=== PATIENT | male | born 1960 | race Caucasian/White ===

== ENCOUNTER 2020-03-16 07:15 | Day surgery (SDC) | payer OTHER ==
[2020-03-10 09:24] LABS: Absolute Lymphocytes (CBC) 1.6 K/uL (0.7-4.9); Basophils % 0.6 % (0-1.3); Hematocrit 43.9 % (39.6-49.0)
--- NOTE | 2020-03-10 09:42 | RAD REPORT ---
EXAM DESCRIPTION: RAD - Chest Pa And Lat (2 Views) - 03/10/2020 9:06 am CLINICAL HISTORY: pre op, patient pending hernia repair COMPARISON: Single-view chest March 2008 TECHNIQUE: Frontal and lateral views of the chest were obtained. FINDINGS: The lungs are clear. Interstitial pattern not clearly different from comparison. Sternoto my wires are in place. Heart size is normal and central vasculature is within normal limits. No pleu ral effusion or pneumothorax seen. No acute bone findings seen. Thoracic vertebral body degenerative changes are present. No aortic abnormality. IMPRESSION: No acute cardiopulmonary process. No suspicious change from the 2007 study.
--- NOTE | 2020-03-10 10:07 | EKG ---
Test Date: 2020-03-10 Test Time: 08:52:51 Central Communications Specialist: MARINA MEASUREMENT RESULTS: Intervals: Rate: 78 WI: 138 QRSD: 106 QT: 372 QTc: 424 [place]: P: 54 WI: 138 QRS: 70 T: 79 INTERPRETIVE STATEMENTS: Normal sinus rhythm Incomplete right bundle branch block Borderline ECG No previous ECG available for comparison Electronically Signed On 03-10-20 10:06:29 CDT by Nathaniel Faye
[2020-03-10 11:31] LABS: Potassium 3.6 mmol/L (3.5-5.1)
[2020-03-16] MEDS ORDERED: Ringers Lactate 1,000 ML IV ONE (07:45)
[2020-03-16] MEDS ORDERED: CEFAZOLIN/SWI 1gm 1 GM/10 ML SYR ONE (07:46)
[2020-03-16] MEDS ORDERED: LIDOCAINE 1% MPF 5 ML VIAL ONE (08:35)
[2020-03-16] MEDS ORDERED: MIDAZOLAM HCL 2 MG/2 ML INJ ONE (08:35)
[2020-03-16] MEDS ORDERED: FENTANYL CITR 100 MCG/2 ML ONE (08:35)
[2020-03-16] MEDS ORDERED: propofoL 200 MG/20 ML VIAL IV ONE (08:35)
[2020-03-16] MEDS ORDERED: KETOROLAC 30 MG/ML INJ ONE (08:54)
[2020-03-16] MEDS ORDERED: dexAMETHasone 4 MG/ML VIAL ONE (08:54)
[2020-03-16] MEDS ORDERED: ONDANSETRON 4 MG/2 ML VIAL ONE (08:54)
[2020-03-16] MEDS ORDERED: NS 0.9% VIAL 10 ML ONE (09:09)
[2020-03-16] MEDS ORDERED: EPHEDRINE SULF 50 MG/ML VIAL ONE (09:09)
[2020-03-16] MEDS ORDERED: Mastisol Adhesive Liq ONE (09:28)
--- NOTE | 2020-03-16 10:00 | OP ---
Date of Procedure: 03/16/2020 Surgeon: Giacomo Dunn MD Sql Server Consultant: JULIA Mars. Preoperative Diagnosis: Right inguinal hernia. Postoperative Diagnosis: Right inguinal hernia. Procedure: Repair of right inguinal hernia. Estimated Blood Loss: Minimal. Specimen: Cord lipoma. Findings: As above with a right direct inguinal hernia. Anesthesia: General. Complications: None. The patient tolerated the procedure in stable condition, taken to Recovery in good general condition. Procedure In Detail: The patient was brought to the OR and placed in supine position. General anest hesia begun. The patient was prepped and draped in usual sterile fashion. Marcaine 0.5% was infiltr ated locally. A 15-blade was used to make a 4 cm oblique incision between the pubic tubercle and the anterior iliac superior spine. Subcutaneous tissue was divided. Richard's fascia was identified and divided. Aponeurosis was identified and mobilized inferiorly to expose shelving edge. Then the apo neurosis was opened through the external ring. The ilioinguinal nerve was identified and retracted o ut of the field of dissection. Cord was mobilized at the pubic tubercle and skeletonized. A large c ord lipoma was present, excised and 2-0 chromic used to tie the base. Direct hernia was identified, freed from the surrounding tissue, reduced back into the peritoneal cavity and the inguinal floor was reconstructed by closing the floor with the 2-0 Prolene joining the conjoined tendon to the shelving edge starting at the pubic tubercle and creating a new internal ring. Then Marlex mesh plug was jennifer july in the internal ring and secured with VersaTack stapler. An Onlay mesh was placed on the inguina l floor, secured medially to the pubic tubercle, inferiorly to the shelving edge, laterally to each o ther and superior to the conjoined tendon. Cord structures were placed back in anatomical location. Then 2-0 Prolene was used to close the aponeurosis, 3-0 chromic was used to approximate Richard's fas karen and closed the skin. Sterile dressing was applied. Patient was awakened and taken to Recovery i n good general condition. Discharge Note: The patient will go to Day Surgery and home when stable. Disposition: Home. Condition: Stable. Discharge Instructions: Resume home medications and diet. Activity as tolerated. No heavy lifting. Remove outer dressing in 2 days. Shower. Keep wound clean, dry. Scrotal support, ice pack. Ultr acet 1 tablet p.o. q.4 p.r.n. pain. Follow up in my office in a week. Call for appointment. FACUNDO/FREDDIE Voice ID: [id number] Report ID: [id number]
[2020-03-16 10:01] VITALS: O2SAT 98
[2020-03-16] MEDS ORDERED: HYDROMORPHONE HCL 1 MG/ML INJ ONE (10:04)
[2020-03-16 10:34] VITALS: TEMP 97
[2020-03-16] MEDS ORDERED: TRAMADOL 37.5mg/APAP 325mg PER TAB ONE (10:43)
[2020-03-16 11:17] VITALS: BP 130/70
== END 2020-03-16 11:35 | disposition home or self-care (01) ==
LOC: OR 07:15
PROVIDERS: ATTEND Surgery
PROC: 0YU50JZ Supplement Right Inguinal Region with Synthetic Substitute, Open Approach (ICD-10-PCS; principal; 2020-03-16 08:30)
DX: K40.90 Unilateral inguinal hernia, without obstruction or gangrene, not specified as recurrent (principal); J43.9 Emphysema, unspecified; Z20.828 Contact with and (suspected) exposure to other viral communicable diseases
CPT/HCPCS: 36415; 71046; 80048; 85025; 88302; 93005; J0690; J1100; J1170; J2250; J2405; J2704; J3010; J7120; U0002

== ENCOUNTER → 2023-07-27 | Emergency (ER) | payer OTHER ==
[~2023-07-27] MED LIST: OXYMETAZOLINE HCL 0.05% 15ML NAS ONE
--- OUTSIDE RECORDS SUMMARY | 2023-07-27 16:32 | XMS REPORT | Continuity of Care Document ---
Author Name Unknown Address [address] [facility] [place] [address] [facility] thconnect Address [address] [facility] [address] [place] [address] Care Team Providers Care Comb Tender Name Role Phone Lorenzo Nam Attending Clinician Lorenzo Klein Admitting Clinician Rodger apodaca Payers Payer Name Policy Type Policy Number Effective Date Expirati on Date Source Allergies, Adverse Reactions, Alerts Allergy Name Allergy Type Status Severity Reaction(s) Onset Date Inactive Date Treating Clinician Comments Source codeine DA Active U UNKNOWN 06-20 00:00: 00 [facility] Encounters Start Date/Time End Date/Time Encounter Type Admission Type Attending Clinicians Care Facility Care Department Encounter ID Source 2022-06-20 06:51:00 2022-06-21 09:02:00 Inpatient Lorenzo Bermeo [facility] INTE.02 [id number] [facility] Results Test Description Test Time Test Comments Results Result Co mments Source CBC W/AUTO [id number] 05:30:00* Test Item Value Reference Range Interpretation Comme nts WHITE BLOOD CELL (test code = WBC) 14.1 K/MM3 3.8-9.8 H RED BLOOD CELL (test code = RBC) 4.19 M/MM3 3.95-5.67 N HEMOGLOBIN (test code = HGB) 13.1 G/DL 12.4-16.7 N HEMATOCRIT (test code = HCT) 39.5 % 35.9-49.5 N MEAN CELL VOLUME (test code = MCV) 94 fL 81.7-96.1 N MEAN CELL HGB (test code = MCH) 31.3 pg 27.6-33.2 N MEAN CELL HGB CONCETRATION (test code = MCHC) 33.2 % 32.9-35.5 N RED CELL DISTRIBUTION WIDTH (test code = RDW) 13.2 % 12.1-15.2 N PLATELET COUNT (test code = PLT) 267 K/MM3 129-368 N MEAN PLATELET VOLUME (test c ode = MPV) 9.3 fl 7.4-10.4 N NEUTROPHIL % (test code = NT%) 71.6 % 43-75 N IMMATURE GRANULOCYTE % (test code = IG%) 0.5 % 0.0-2.0 N LYMPHOCYTE % (test code = LY%) 16.6 % 14-44 N MONOCYTE % (test code = MO%) 10.7 % 4-13 N EOSINOPHIL % (test code = EO%) 0.4 % 0-6 N BASOPHIL % (test code = BA%) 0.2 % 0-2 N NUCLEATED RBC % (test code = NRBC%) 0.0 % 0-1.0 N NEUTROPHIL # (test code = NT#) 10.06 K/mm3 2.0-7.6 H IMMATURE GRANULOCYTE # (test code = IG#) 0.07 x10 3/uL 0-0.03 H LYMPHOCYTE # (test code = LY#) 2.34 K/mm3 1.0-3.8 N MONOCYTE # (test code = MO#) 1.51 K/mm3 0.1-0.8 H EOSINOPHIL # (test code = EO#) 0.05 K/mm3 0.0-0.2 N BASOPHIL # (test code = BA#) 0.03 K/mm3 0.0-0.2 N NUCLEATED RBC # (test code = NRBC#) 0.00 K/mm3 0.0-0.1 N PROTHROMBIN [id number] 07:47:00* Test Item Value Reference Range Interpretation Comme nts PROTHROMBIN TIME PATIENT (test code = PTP) 11.2 SECONDS 9.4-12.7 N INTERNATIONAL NORMAL RATIO (test code = INR) 1.0 0.86-1.14 N The INR is to be used only for monitoring oral anticoagulanttherap y. INDICATION INR VALUE -------1. Prophylaxis, deep venous thrombosis, including high risk surgery. 2.0 - 3.0 2. Prophylaxis, deep venous thrombosis, hip surgery, treatment for deep venous thrombosis or pulmonary prevention of systemic embolism in patients with valvular heart disease, atrial fibrillation, tissue heart valve, or acute myocardial infarction. 2.0 - 3.0 3. Mechanical prosthesis heart valves, recurrent systemic embolism. 3.0 - 4.5 PTT [id number] 07:47:00* Test Item Value Reference Range Interpretation Comme nts PTT ACTIVATED (test code = APTT) 41.1 SECONDS 26.2-35.4 H BASIC METABOLIC [id number] 07:43:00* Test Item Value Reference Range Interpretation Comme nts SODIUM (test code = NA) 139 MMOL/L 137-145 N POTASSIUM (test code = K) 4.0 MMOL/L 3.5-5.1 N CHLORIDE (test code = CL) 107 MMOL/L 98-107 N CARBON DIOXIDE (test code = CO2) 26 MMOL/L 22-30 N GLUCOSE (test code = GLU) 117 MG/DL 74-106 H BLOOD UREA NITROGEN (test code = BUN) 21 MG/DL 9-20 H GLOMERULAR FILTRATION RATE (test code = GFR) > 60 The Glomerular Filtration Rate is a calculated parameterbased on serum Creatinine, patient age and sex. GFR valuesless than 60 mL/min/1.73 square meters are indicative ofChronic Kidney Disease. Values less than 15 mL/min/1.73square meters indicate Kidney failure. The calculation forGFR is based on the CKD-EPI (2020) calculation. This formulais race indifferent and is the recommended formula for GFRby the National Kidney Foundation for Adults.The GFR will not calculate if the sex is unknown or if thepatient's age is <18 years. CREATININE (test code = CREAT) 1.00 MG/DL 0.66-1.25 N CALCIUM (test code = CA) 10.0 MG/DL 8.4-10.2 N [id number] 07:43:00* Test Item Value Reference Range Interpretation Comme nts MAGNESIUM (test code = MAG) 1.9 MG/DL 1.6-2.3 N CBC W/AUTO [id number] 07:42:00* Test Item Value Reference Range Interpretation Comme nts WHITE BLOOD CELL (test code = WBC) 7.1 K/MM3 3.8-9.8 N RED BLOOD CELL (test code = RBC) 4.52 M/MM3 3.95-5.67 N HEMOGLOBIN (test code = HGB) 14.3 G/DL 12.4-16.7 N HEMATOCRIT (test code = HCT) 42.6 % 35.9-49.5 N MEAN CELL VOLUME (test code = MCV) 94 fL 81.7-96.1 N MEAN CELL HGB (test code = MCH) 31.6 pg 27.6-33.2 N MEAN CELL HGB CONCETRATION (test code = MCHC) 33.6 % 32.9-35.5 N RED CELL DISTRIBUTION WIDTH (test code = RDW) 12.9 % 12.1-15.2 N PLATELET COUNT (test code = PLT) 259 K/MM3 129-368 N MEAN PLATELET VOLUME (test c ode = MPV) 8.8 fl 7.4-10.4 N NEUTROPHIL % (test code = NT%) 61.1 % 43-75 N IMMATURE GRANULOCYTE % (test code = IG%) 0.6 % 0.0-2.0 N LYMPHOCYTE % (test code = LY%) 21.8 % 14-44 N MONOCYTE % (test code = MO%) 12.0 % 4-13 N EOSINOPHIL % (test code = EO%) 3.8 % 0-6 N BASOPHIL % (test code = BA%) 0.7 % 0-2 N NUCLEATED RBC % (test code = NRBC%) 0.0 % 0-1.0 N NEUTROPHIL # (test code = NT#) 4.31 K/mm3 2.0-7.6 N IMMATURE GRANULOCYTE # (test code = IG#) 0.04 x10 3/uL 0-0.03 H LYMPHOCYTE # (test code = LY#) 1.54 K/mm3 1.0-3.8 N MONOCYTE # (test code = MO#) 0.85 K/mm3 0.1-0.8 H EOSINOPHIL # (test code = EO#) 0.27 K/mm3 0.0-0.2 H BASOPHIL # (test code = BA#) 0.05 K/mm3 0.0-0.2 N NUCLEATED RBC # (test code = NRBC#) 0.00 K/mm3 0.0-0.1 N Notes Date/Time Note Provider Source 2022-06-27 09:39:00 [id number] aqm+9eZhyhXLVN/[id number]:39:16289 [address] [place] [address] PATIENT NAME: SANTO WALTER ADMIT DATE: 06/20/22ACCOUNT NO: [id number] ROOM NO: Z.340 AGE: 62 REPORT TYPE: eTRANSESOPHAGEAL ECHO SEX: M ADMITTING PHYSICIAN:Lorenzo Nam MD ATTENDING PHYSICIAN:Lorenzo Nam MD *[facility]*[address] [place], [place] [address]Phone Transesophageal Echocardiogram Patient: Santo WalterStudy Date: 06/20/2022 BP: Location: [facility]: [id number] : 1960 Age: 62 Height: 72 in / 182.9 cmAccession#: [id number] Gender: M Weight: 178.6 lb / 81.2 kgBMI/BSA: 24.3 kg/m 2 / 2.04 m 2 *Ordering Physician: * Lorenzo Nam MD *Interpreting Physician: * Lorenzo Nam MD*Restaurant Line Server: * Radha Monreal RDCS, RCS Indications: PRE OP. Study data: Consent: The risks, benefits, and alternatives to theprocedure were explained to the patient and informed consent wasobtained. Procedure: Initial setup: [facility].Intravenous access was obtained. SurfaceECG leads and pulse oximetric signals were monitored. Sedation. Moderatesedation was administered by cardiology staff. Transesophagealechocardiography was performed. Topical anesthesia was obtained usingviscous lidocaine. A transesophageal probe was inserted by the attendingcardiologist without difficulty. Image quality was fair. Complete 2D,complete spectral Doppler, and color Doppler. Location:Catheterization laboratory. Patient status: Outpatient. Patient roomnumber: 1. Study status: Routine. Study completion: The patienttolerated the procedure well. There were no complications. PATIENT NAME: SANTO WALTER [id number] [address] PATIENT NAME: SANTO WALTER ADMIT DATE: 06/20/22ACCOUNT NO: [id number] ROOM NO: 340 AGE: 62 REPORT TYPE: eTRANSESOPHAGEAL ECHO SEX: M ADMITTING PHYSICIAN:Lorenzo Nam MD ATTENDING PHYSICIAN:Lorenzo Nam MD Findings Left ventricle: The cavity size is normal. Systolic function is normal. There is no evidence of a thrombus.Ventricular septum: The ventricular septum is normal.Left atrium: The atrium is normal in size. The appendage is wellvisualized and of normal size. Emptying velocity is normal. There is noevidence of a thrombus in the atrial cavity or appendage.Right atrium: The atrium is normal in size. There is a thrombus in theatrial cavity or appendage.Atrial septum: No defect or patent foramen ovale is identified.Aorta: The aorta is well visualized and normal size.Aortic valve: The leaflets are normal thickness. There is no evidenceof stenosis. There is trivial regurgitation.Mitral valve: The leaflets are normal thickness. There is no evidenceof a vegetation. There is no evidence of stenosis. There is mildregurgitation.Tricuspid valve: There is no evidence of stenosis. There is mildregurgitation.Pulmonic valve: There is no evidence of stenosis. There is nosignificant regurgitation.Pericardium: There is no pericardial effusion. Measurements Tricuspid valve Value Ref TR peak v 2.18 m/sec <=2.8 Peak RV-RA grad, S 19 mm Hg ----- Conclusions Summary: 1. Left ventricle: The cavity size is normal. Systolic function is normal. There is no evidence of a thrombus.2. Left atrium: There is no evidence of a thrombus in the atrial cavity or appendage.3. Right atrium: There is a thrombus in the atrial cavity or appendage.4. Atrial septum: No defect or patent foramen ovale is identified.5. Mitral valve: There is no evidence of a vegetation. PATIENT NAME: SANTO WALTER [id number] [address] PATIENT NAME: SANTO WALTER ADMIT DATE: 06/20/22ACCOUNT NO: [id number] ROOM NO: [facility] AGE: 62 REPORT TYPE: eTRANSESOPHAGEAL ECHO SEX: M ADMITTING PHYSICIAN:Lorenzo Nam MD ATTENDING PHYSICIAN:Lorenzo Nam MD Prepared and electronically signed by Lorenzo Nam MD06/27/2022 09:39 at 0939 PATIENT NAME: SANTO WALTER [id number]:39:00Z.[id number] ilable for patient lincDXSOXMJURHDFUJ3399-73-54P87:40:27 [facility] 2022-06-21 07:16:00 [id number] JC8hSUIs77oCOZq+k2MMLqhAm+po1 hzu4OW/s1k5Y+QOHM8ldqrM66Qa9481-20-82X97:16:[address] [facility] HospitalCard[facility] Progress NoteREPORT#:[id number] REPORT STATUS: SignedDATE:06/21/22 TIME: 715 PATIENT: SANTO WALTER UNIT #: [id number]#: [id number] [facility] AGE: 62 SEX: M ATTEND: Lorenzo Nam [facility] AUTHOR: Lorenzo Nam MD * ALL edits or amendments must be made on the electronic/computer document * SubjectiveChief complaint:Atrial FlutterPatient reports:No: chest pain, palpitations, shortness of breath. Objective GeneralVS/I O:24 hour I O ending at 0700: 06/21 0700 06/20 1900 Intake Total Output Total Balance Number Voids 3 Patient 81 kg 81.6 kg Weight Weight Stated/Reported Measurement Method Vital Signs: Date Time Temp Pulse Resp B/P B/P Pulse O2 O2 Flow FiO2 Mean Ox Delivery Rate 06/21 06 83 20 155/83 113 96 06/21 0500 85 39 149/94 115 97 06/21 0400 86 23 162/87 118 96 06/21 0300 78 19 145/86 110 96 06/21 0200 75 20 129/81 101 95 / 0100 77 20 131/77 97 97 02/ 0000 98.1 06/21 0000 78 23 139/82 105 96 06/20 2200 81 29 134/74 98 95 06/20 2100 86 29 127/69 92 96 06/20 1999 83 24 130/75 97 96 06/20 1900 85 23 134/82 102 96 06/20 1800 89 29 134/85 99 97 PATIENT WEIGHT: Weight (lb): 178Weight (oz): 9.19Weight (kg): 81.000 Medications:Active Meds + DC'd Last 24 HrsAspirin (CHILDREN'S ASPIRIN) 81 MG DAILY PO Fluticasone Propionate (FLONASE) 2 SPRAY DAILY NASAL (CKD) Loratadine (CLARITIN) 10 MG DAILY PO Temazepam (RESTORIL (C-IV)) 15 MG BEDTIME PRN PRN PO Sodium Chloride (SODIUM CHLORIDE 0.9%) 1,000 ML ONCE ONE IV (DC) Heparin Sodium/Sodium Chloride (HEPARIN 1000 UNITS/NS 500ML) 500 ML .STK-MEDONE IV (DC) Fentanyl Citrate (SUBLIMAZE (C-II)) 0 .STK-MED ONE .ROUTE (DC) Heparin Sodium/Dextrose (HEPARIN 25,000UNITS/D5W 500ML) 500 ML .STK-MED ONE IV (DC) Lidocaine HCl (Glydo 2% JELLY) 0 .STK-MED ONE .ROUTE (DC) Heparin Sodium/Sodium Chloride (HEPARIN 1000 UNITS/NS 500ML) 0 .STK-MED ONE IV (DC) Midazolam HCl (VERSED (C-IV)) 0 .STK-MED ONE .ROUTE (DC) Fentanyl Citrate (SUBLIMAZE (C-II)) 0 .STK-MED ONE .ROUTE (DC) Propofol (DIPRIVAN) 0 .STK-MED ONE .ROUTE (DC) Ephedrine Sulfate (ePHEDrine sulfate) 0 .STK-MED ONE .ROUTE (DC) Etomidate (AMIDATE) 0 .STK-MED ONE .ROUTE (DC) Heparin Sodium (HEPARIN SODIUM) 0 .STK-MED ONE .ROUTE (DC) Heparin Sodium/Sodium Chloride (HEPARIN 1000 UNITS/NS 500ML) 500 ML .STK-MEDONE IV (DC) Iopamidol (ISOVUE-300) 0 .STK-MED ONE .ROUTE (DC) Lidocaine (XYLOCAINE 1%) 0 .STK-MED ONE .ROUTE (DC) Physical ExamGeneral appearance: alert, awake, orientedHead/Eyes: atraumatic, normocephalicENT: moist mucosal membranesNeck: no JVDCardiovascular: CV assessment: regular rate and rhythmRespiratory: clear to auscultation, no distressLower extremity: LE assessment: no edemaMusculoskeletal: full range of motionNeuro/COST ESTIMATING ENGINEER: alert, oriented X 3, CN II-XII intactSkin: dry, intactWound/incision: Location:Bilateral groin Site condition: dressing clean dryPsychiatry: normal affect, normal judgment/insight, normal mood ResultsFindings/Data:Laboratory Tests 06/215 0712 Chemistry Sodium (137 - 145 MMOL/L) 139 139 Potassium (3.5 - 5.1 MMOL/L) 3.5 4.0 Chloride (98 - 107 MMOL/L) 106 107 Carbon Dioxide (22 - 30 MMOL/L) 27 26 BUN (9 - 20 MG/DL) 18 21 H Creatinine (0.66 - 1.25 MG/DL) 1.00 1.00 Glomerular Filtr Rate > 60 > 60 Glucose (74 - 106 MG/DL) 116 H 117 H Calcium (8.4 - 10.2 MG/DL) 10.1 10.0 Magnesium (1.6 - 2.3 MG/DL) 1.9 Laboratory Tests 06/20 722 Coagulation INR (0.86 - 1.14) 1.0 APTT (26.2 - 35.4 SECONDS) 41.1 H PT Patient/Control Mix (9.4 - 12.7 SECONDS) 11.2 Laboratory Tests 06/21 06/20 0455 0767 Hematology WBC (3.8 - 9.8 K/MM3) 14.1 H 7.1 RBC (3.95 - 5.67 M/MM3) 4.19 4.52 Hgb (12.4 - 16.7 G/DL) 13.1 14.3 Hct (35.9 - 49.5 %) 39.5 42.6 MCV (81.7 - 96.1 fL) 94 94 MCH (27.6 - 33.2 pg) 31.3 31.6 MCHC (32.9 - 35.5 %) 33.2 33.6 RDW (12.1 - 15.2 %) 13.2 12.9 Plt Count (129 - 368 K/MM3) 267 259 MPV (7.4 - 10.4 fl) 9.3 8.8 Neut % (Auto) (43 - 75 %) 71.6 61.1 Lymph % (Auto) (14 - 44 %) 16.6 21.8 Parke % (Auto) (4 - 13 %) 10.7 12.0 Eos % (Auto) (0 - 6 %) 0.4 3.8 Baso % (Auto) (0 - 2 %) 0.2 0.7 Neut # (Auto) (2.0 - 7.6 K/mm3) 10.06 H 4.31 Lymph # (Auto) (1.0 - 3.8 K/mm3) 2.34 1.54 Parke # (Auto) (0.1 - 0.8 K/mm3) 1.51 H 0.85 H Eos # (Auto) (0.0 - 0.2 K/mm3) 0.05 0.27 H Baso # (Auto) (0.0 - 0.2 K/mm3) 0.03 0.05 Immature Gran % (0.0 - 2.0 %) 0.5 0.6 Nucleated RBC % (0 - 1.0 %) 0.0 0.0 Nucleated RBCs # (Man) (0.0 - 0.1 K/mm3) 0.00 0.00 Laboratory Tests 06/20 07 Chemistry Magnesium (1.6 - 2.3 MG/DL) 1.9 Laboratory Tests 06/20 0723 Coagulation APTT (26.2 - 35.4 SECONDS) 41.1 H Diagnosis, Assessment Plan Free Text DxA P NotesFree Text DxA P Notes:IMP: Typical atrial flutter s/p ablation. PLAN: d/c home f/u one week. at 0626 RPT #:[id number] OF REPORTPRProgress [id number]:16:00Z.[id number] able for patient fprmWLJALAKWQKAMEQ0121-66-97T09:26:54 [facility] 2022-06-20 11:52:00 [id number]/ tAqeTZ9xpCtmWxAIojbaVP0a9Pmu6 HRCa34KqDCpOlu0QWSRH340gyAV0346-25-17C87:52:43432 6-0014 [place] [address] PATIENT NAME: SANTO WALTER ADMIT DATE: 06/20/22ACCOUNT NO: [id number] ROOM NO: [facility] AGE: 62 REPORT TYPE: CARDIAC CATHETERIZATION REPORT SEX: M ADMITTING PHYSICIAN:Lorenzo Nam MD ATTENDING PHYSICIAN:Lorenzo Nam MD PROCEDURE DATE: 06/20/2022 PROCEDURE:1. Comprehensive electrophysiology study with atrial ablation.2. Left atrial recording and pacing.3. Intracardiac echocardiography. PREPROCEDURE DIAGNOSIS: Atrial flutter. POSTPROCEDURE DIAGNOSIS: Typical counterclockwise isthmus dependent atrial flutter. FOOD SERVICE TRAY ATTENDANT: Lorenzo Nam M.D. MANAGER DISASTER RECOVERY: None. ANESTHESIA: General endotracheal. PROCEDURE IN DETAIL: After informed consent was obtained explaining to the patient risks, benefits, and alternatives, the patient was brought to the cardiac catheterization lab in the fasting postabsorptive state. He was preppedand draped in sterile fashion. Local anesthesia was applied over both femoral veins with 1% lidocaine. Access to the veins was obtained using modified Seldinger technique, a micropuncture kit, and ultrasound guidance. A long 9-Nicaraguan, 6-Nicaraguan, and standard 8-Nicaraguan sheaths were placed in left femoral vein. A locking 8-Nicaraguan sheath and a standard 8-Nicaraguan sheath were placed in the right femoral veins. All sheaths were aspirated and flushed and connected to heparinized saline infusion. A decapolar catheter was advanced via the locking 8-Nicaraguan sheath and placed in the coronary sinus. A 5-Nicaraguan Cournand catheter was advanced via the 6-Nicaraguan sheath and placed in the right ventricle. An intracardiac echocardiography catheter was advanced via the 9-Nicaraguan sheath and placed in the right atrium. Intracardiac echocardiography was performed to map the cavotricuspid isthmus. The standard 8-Nicaraguan sheath on the right was exchanged for a Vizigo deflectable sheath, which was advanced over the wire. A PentaRay catheter was then advanced into the right atrium via the Vizigo sheath. The sheath was then advanced into the right atrium. A 3-dimensional interatrial mapping was performed. The arrhythmia was entrained at the cavotricuspid isthmus. The PentaRay catheter was exchanged for an STSF ThermoCool ablation catheter, was advanced via the sheath. Further entrainment mapping was performed with the ablation catheter at the cavotricuspid isthmus. Following confirmation of typical counterclockwise isthmus dependent flutter, multiple RF applications were made across the cavotricuspid isthmus guided with PATIENT NAME: SANTO WALTER intracardiac echo. The arrhythmia terminated. Further RF applications were made. A complete bidirectional isthmus block was verified with differential pacing. Left atrial recordings and pacing were made. Left atrial pacing via the coronary sinus catheter was utilized for verification of bidirectional isthmus block. At the end of the procedure, all catheters were removed. The sheaths were aspirated and flushed. The sheaths were removed and hemostasis achieved with local pressure. The patient tolerated the procedure well. No complications. CONCLUSIONS:1. Baseline rhythm, typical counterclockwise isthmus dependent flutter.2. Successful cavotricuspid isthmus ablation.3. Estimated blood loss 5 mL.4. No complications. Dictated By: Lorenzo Nam MD Date Dictated: 06/20/2022 11:52:52Date Transcribed: 06/20/2022 12:36:02LUCI/Garret #: [id number] ID: [id number] CC:Shannon Klein MD (F)Authenticated by Lorenzo Nam MD On 06/22/2022 06:18:35 AM at 0618 PATIENT NAME: SANTO WALTER [id number]:36:00Z.[id number] ble for patient vskgXOPCIHWGZERBEA2173-30-68A27:19:14 [facility] 2022-06-20 07:36:00 [id number] mlxCH8CiJg7sexK4oKa/bVueZKQkp jGrPBVdhpcUco1Ojy4wwdIxqkO24517-56-94U88:36:67546 [address] [address] PATIENT NAME: SANTO WALTER ADMIT DATE: 06/20/22ACCOUNT NO: [id number] ROOM NO: Z.340 AGE: 62 REPORT TYPE: ELECTROCARDIOGRAM SEX: M ADMITTING PHYSICIAN:Lorenzo Nam MD ATTENDING PHYSICIAN:Lorenzo Nam MD Order:[id number] Reason : ATRIAL FLUTTER Test Date/Time Stamp:MonJun 20 2022 07:36:31Blood Pressure : / mmHGVent. Rate : 085 BPM Atrial Rate : 214 BPM P-R Int : 000 ms QRS Dur : 120 ms QT Int : 348 ms P-R-T Axes : 266 -32 049 degrees QTc Int : 414 ms Atrial flutter with variable AV blockLeft axis deviationPulmonary disease patternRight bundle branch blockAbnormal ECGNo previous ECGs availableConfirmed by SHANNON KLEIN ([id number]) on 06/20/2022 5:56:11 PM Referred By: Self Referred Confirmed by:SHANNON KLEIN at 1756 PATIENT NAME: SANTO WALTER .[id number] AVAvailable for patient pjuvHWNLWGNLZWZXQW1380-13-62J66:56:34 [facility]
[2023-07-27 18:11] LABS: Absolute Basophils 0.1 K/uL (0-0.5); Absolute Eosinophils 0.2 K/uL (0-0.5); Absolute Lymphocytes (CBC) 1.7 K/uL (0.7-4.9); Absolute Monocytes 1.3 K/uL (0.1-1.3); Absolute Neutrophil 13.6 K/uL (1.8-8.0); Basophils % 0.8 % (0-1.3); Eosinophils % 1.5 % (0-4.4); Hematocrit 36.2 % (39.6-49.0); Hemoglobin 12.3 g/dL (13.6-17.9); Lymphocytes % 9.8 % (15.3-44.8); MCH 31.1 pg (27.0-35.0); MCV 91.4 fL (80-100); MPV 6.5 fL (7.6-11.3); Monocytes % 7.7 % (3.3-12.3); Neutrophils % 80.2 % (41.7-73.7); Nucleated Red Blood Cells % 0.1 % (0-0); Platelets 384 thou/uL (152-406); RBC Red Blood Cell Count 3.96 M/uL (4.33-5.43); Red Cell Distribution Width 13.1 % (12.1-15.2)
[2023-07-27 18:12] LABS: PT Prothrombin Time 11.9 SECONDS (9.5-12.5); Protime INR 1.08
[2023-07-27 18:30] LABS: Albumin 3.3 g/dL (3.4-5.0); Albumin/Globulin Ratio 0.8 (1.1-1.8); Anion Gap 7.9 mEq/L (5.0-15.0); Bilirubin Total 0.2 mg/dL (0.2-1.0); Globulin 4.1 g/dL (2.3-3.5); Potassium 3.9 mEq/L (3.5-5.1); Protein, Total 7.4 g/dL (6.4-8.2)
--- NOTE | 2023-07-27 18:39 | ER ---
Nurse's Notes [facility] Name: Thai Daugherty Age: 63 yrs Sex: Male : 1960 Arrival Date: 07/27/2023 Time: 16:29 Bed 18 Private MD: Winston Keyes B Diagnosis: Epistaxis Presentation: 07/26 16:42 Chief complaint: Patient states: had polyps removed from nose 2 weeks ago, today he has iw had three nose bleeds. Coronavirus screen: At this time, the client does not indicate any symptoms associated with coronavirus-19. Ebola Screen: Patient negative for fever greater than or equal to 101.5 degrees Fahrenheit, and additional compatible Ebola Virus Disease symptoms Patient denies exposure to infectious person. Patient denies travel to an Ebola-affected area in the 21 days before illness onset. No symptoms or risks identified at this time. Initial Sepsis Screen: Does the patient meet any 2 criteria? No. Patient's initial sepsis screen is negative. Does the patient have a suspected source of infection? No. Patient's initial sepsis screen is negative. Risk Assessment: Do you want to hurt yourself or someone else? Patient reports no desire to harm self or others. Onset of symptoms was July 27, 2023. 16:42 Method Of Arrival: Ambulatory iw 16:42 Acuity: JORDAN 3 iw Historical: - Allergies: 18:53 No Known Allergies; tl4 - Home Meds: 18:53 None [Active]; tl4 - PMHx: 18:53 None; tl4 - PSHx: 18:53 None; tl4 - Immunization history:: Adult Immunizations unknown. - Family history:: not pertinent. - Social history:: Smoking status: Patient denies any tobacco usage or history of. Screenin:[facility] ED Fall Risk Assessment (Adult) History of falling in the last 3 months, tl4 including since admission No falls in past 3 months (0 pts) Confusion or Disorientation No (0 pts) Intoxicated or Sedated No (0 pts) Impaired Gait No (0 pts) Mobility Assist Device Used No (0 pt) Altered Elimination No (0 pt) Score/Fall Risk Level 0 - 2 = Low Risk Oriented to surroundings, Maintained a safe environment, Educated pt \T\ family on fall prevention, incl call for assistance when getting out of bed, Assessed \T\ reinforced patient's understanding of fall precautions, Hourly rounding (assess needs \T\ fall precautionary measures) done, Used ambulatory aids as needed (educated on \T\ assisted with), Used gait belt as appropriate. Abuse screen: Denies threats or abuse. Denies injuries from another. Nutritional screening: No deficits noted. Tuberculosis screening: No symptoms or risk factors identified. Assessment: 18:10 General: Appears distressed, Behavior is cooperative. Pain: Denies pain. Neuro: No tl4 deficits noted. Level of Consciousness is awake, alert, obeys commands, Oriented to person, place, time, situation, Speech is normal, Facial symmetry appears normal. Cardiovascular: No deficits noted. Capillary refill < 3 seconds Patient's skin is warm and dry. Respiratory: No deficits noted. Breath sounds are clear bilaterally. GI: No deficits noted. No signs and/or symptoms were reported involving the gastrointestinal system. : No deficits noted. No signs and/or symptoms were reported regarding the genitourinary system. EENT: No deficits noted. No signs and/or symptoms were reported regarding the EENT system. Derm: No deficits noted. No signs and/or symptoms reported regarding the dermatologic system. Musculoskeletal: No deficits noted. No signs and/or symptoms reported regarding the musculoskeletal system. Vital Signs: 16:42 BP 124 / 78; Pulse 84; Resp 16; Temp 97.8; Pulse Ox 98% on R/A; iw 18:10 BP 134 / 75; Pulse 85; Resp 16; Pulse Ox 100% on R/A; Pain 8/10; tl4 18:10 BP 137 / 81; Pulse 84; Resp 18; Temp 97.6(O); Pulse Ox 100% ; Pain 8/10; tl4 18:10 Pain Scale: Adult tl4 18:10 Pain Scale: Adult tl4 Luzma Coma Score: 18:10 Eye Response: spontaneous(4). Motor Response: obeys commands(6). Verbal Response: tl4 oriented(5). Total: 15. ED Course: 16:31 Patient arrived in ED. mr 16:31 Winston Keyes MD is Private Physician. mr 16:35 Preston Portillo MD is Attending Physician. rt 16:43 Triage completed. iw 17:21 Abhinav Robbins RN is Primary Nurse. tl4 18:39 Stefani Arita MD is Referral Physician. rt 18:51 Patient has correct armband on for positive identification. Placed in gown. Bed in low tl4 position. Call light in reach. Side rails up X 1. Adult w/ patient. Provided Education on: ed process. Client placed on continuous cardiac and pulse oximetry monitoring. NIBP monitoring applied. Door closed. Noise minimized. Lights dimmed. Moved to private room. Pillow given. Cool cloth applied. 18:52 No provider procedures requiring assistance completed. tl4 18:52 Inserted saline lock: 22 gauge in right forearm, using aseptic technique. Blood tl4 collected. 18:53 Arm band placed on right wrist. tl4 18:53 IV discontinued, intact, bleeding controlled, No redness/swelling at site. Pressure tl4 dressing applied. Administered Medications: 18:27 Drug: Oxymetazoline Intranasal Drops (0.05 %) 1 sprays Intranasal once Route: tl4 Intranasal; Site: both nares; 18:47 Follow up: Response: No adverse reaction; Marked relief of symptoms tl4 Medication: 18:53 VIS not applicable for this client. tl4 Outcome: 18:39 Discharge ordered by . rt 18:53 Discharged to home ambulatory, with family, tl4 18:53 Condition: stable 18:53 Discharge instructions given to patient, family, Instructed on discharge instructions, follow up and referral plans. medication usage, Demonstrated understanding of instructions, follow-up care, medications, 19:18 Patient left the ED. tl4 Signatures: Ximena Greene, Reg Reg mr Aline Posey RN RN iw Preston Portillo MD MD rt Abhinav Robbins RN RN tl4
--- NOTE | 2023-07-27 18:40 | EDPHYS ---
Physician Documentation [facility] Name: Thai Daugherty Age: 63 yrs Sex: Male : 1960 Arrival Date: 07/27/2023 Time: 16:29 Bed 18 Private MD: Winston Keyes B ED Physician Preston Portillo HPI: 07/26 18:40 This 63 yrs old Male presents to ER via Ambulatory with complaints of Nose Bleed. rt 18:40 Patient presents to the ED with epistaxis. Reportedly, 2 weeks ago, had polypectomy rt performed by Dr. Arita. Has an appoint with her tomorrow. Started having a nosebleed today, stopped, start again after blowing nose. Reports losing blood but denies near syncope, shortness of breath. Denies other acute complaints, symptoms are moderate in severity, no other aggravating elevating factors.. Historical: - Allergies: 18:53 No Known Allergies; tl4 - Home Meds: 18:53 None [Active]; tl4 - PMHx: 18:53 None; tl4 - PSHx: 18:53 None; tl4 - Immunization history:: Adult Immunizations unknown. - Family history:: not pertinent. - Social history:: Smoking status: Patient denies any tobacco usage or history of. ROS: 18:40 Constitutional: Negative for fever, chills, and weight loss, Cardiovascular: Negative rt for chest pain, palpitations, and edema, Respiratory: Negative for shortness of breath, cough, wheezing, and pleuritic chest pain, Abdomen/GI: Negative for abdominal pain, nausea, vomiting, diarrhea, and constipation, Skin: Negative for injury, rash, and discoloration, Neuro: Negative for headache, weakness, numbness, tingling, and seizure, 18:40 ENT: Positive for nose bleed, Negative for sore throat, Exam: 18:40 Constitutional: This is a well developed, well nourished patient who is awake, alert, rt and in no acute distress. Head/Face: Normocephalic, atraumatic. Chest/axilla: Normal chest wall appearance and motion. Nontender with no deformity. No lesions are appreciated. Cardiovascular: Regular rate and rhythm with a normal S1 and S2. No gallops, murmurs, or rubs. Normal PMI, no JVD. No pulse deficits. Respiratory: Lungs have equal breath sounds bilaterally, clear to auscultation and percussion. No rales, rhonchi or wheezes noted. No increased work of breathing, no retractions or nasal flaring. Abdomen/GI: Soft, non-tender, with normal bowel sounds. No distension or tympany. No guarding or rebound. No evidence of tenderness throughout. Skin: Warm, dry with normal turgor. Normal color with no rashes, no lesions, and no evidence of cellulitis. MS/ Extremity: Pulses equal, no cyanosis. Neurovascular intact. Full, normal range of motion. 18:40 ENT: Moderate amount of clot noted in the left nare, right nare has a small amount of blood in it, no active bleeding.. Vital Signs: 16:42 BP 124 / 78; Pulse 84; Resp 16; Temp 97.8; Pulse Ox 98% on R/A; iw 18:10 BP 134 / 75; Pulse 85; Resp 16; Pulse Ox 100% on R/A; Pain 8/10; tl4 18:10 BP 137 / 81; Pulse 84; Resp 18; Temp 97.6(O); Pulse Ox 100% ; Pain 8/10; tl4 18:10 Pain Scale: Adult tl4 18:10 Pain Scale: Adult tl4 [place] Coma Score: 18:10 Eye Response: spontaneous(4). Motor Response: obeys commands(6). Verbal Response: tl4 oriented(5). Total: 15. MDM: 16:40 Patient medically screened. rt 18:40 Differential diagnosis: spontaneous epistaxis. Data reviewed: vital signs, nurses rt notes, lab test result(s). Management of patient was discussed with the following: Women'S Studies Lecturer: Discussed with patient's ENT, will follow-up tomorrow. Counseling: I had a detailed discussion with the patient and/or guardian regarding the historical points, exam findings, and any diagnostic results supporting the discharge/admit diagnosis, lab results, the need for outpatient follow up, to return to the emergency department if symptoms worsen or persist or if there are any questions or concerns that arise at home. Response to treatment: the patient's symptoms have markedly improved after treatment. 07/26 16:49 Order name: CBC with Diff; Complete Time: 18:32 rt 07/26 16:49 Order name: CMP; Complete Time: 18:32 rt 07/26 16:49 Order name: [id number]; Complete Time: 18:32 rt Administered Medications: 18:27 Drug: Oxymetazoline Intranasal Drops (0.05 %) 1 sprays Intranasal once Route: tl4 Intranasal; Site: both nares; 18:47 Follow up: Response: No adverse reaction; Marked relief of symptoms tl4 Disposition Summary: 07/27/23 18:39 Discharge Ordered Notes: Location: Home rt Problem: new rt Symptoms: have improved rt Condition: Stable rt Diagnosis - Epistaxis rt Followup: rt - With: Stefani Arita MD - When: Tomorrow - Reason: Discharge Instructions: - Discharge Summary Sheet rt - Nosebleed, Adult rt Forms: - Medication Reconciliation Form rt - Thank You Letter rt - Antibiotic Education rt - Prescription Opioid Use rt - Patient Portal Instructions rt - Leadership Thank You Letter rt Signatures: Dispatcher [employer] Prestno Jenkins MD MD rt Abhinav Robbins RN RN tl4
[2023-07-27 20:04] VITALS: BP 137/81; TEMP 97.6; O2SAT 100
== END ==
LOC: ER 16:29
DX: R04.0 Epistaxis (principal)
CPT/HCPCS: 36415; 80053; 85025; 85610; 99284